=== PATIENT | male | born 1995 | race Caucasian/White ===

== ENCOUNTER 2023-04-11 19:39 | Emergency (ER) | payer OTHER ==
[2023-04-11 19:46] VITALS: TEMP 96.6
[2023-04-11 20:05] LABS: VENOUS BASE EXCESS 2.1 (-2.0-2.0); VENOUS HCO3 29.5 MMOL/L (23.0-27.0); VENOUS O2 SATURATION 54.6 % (60.0-80.0); VENOUS PARTIAL PRESSURE CO2 57.5 mmHg (38.0-50.0); VENOUS PARTIAL PRESSURE O2 28.6 mmHg (30.0-50.0); VENOUS PH 7.328 UNITS (7.330-7.430); VENOUS STANDARD HCO3 25.3 MMOL/L; VENOUS TOTAL CO2 31.3 MMOL/L (24.0-28.0)
[2023-04-11 20:06] LABS: IONIZED CALCIUM 4.6 MG/DL (4.5-5.3)
[2023-04-11] MEDS ORDERED: NS 1,000 ML IV ONE (20:15)
[2023-04-11 20:22] LABS: BASO % 0.7 % (0.0-1.0); EOS # 0.1 10^3/uL (0.0-0.5); EOS % 2.5 % (0.0-3.0); HEMATOCRIT 38.2 % (42.0-52.0); HEMOGLOBIN 13.2 g/dl (13.5-17.5); LYMPH # 1.2 10^3/uL (1.5-5.0); LYMPH % 27.6 % (24.0-44.0); MEAN CORPUSCULAR HEMOGLOBIN 29.5 pg (27.0-33.0); MEAN CORPUSCULAR HGB CONC 34.6 g/dl (32.0-36.5); MEAN CORPUSCULAR VOLUME 85.5 fl (80.0-96.0); MONO # 0.3 10^3/uL (0.0-0.8); MONO % 7.2 % (2.0-8.0); NEUTROPHILS # 2.8 10^3/uL (1.5-8.5); NEUTROPHILS % 61.8 % (36.0-66.0); PLATELET COUNT, AUTOMATED 232 10^3/uL (150-450); RED BLOOD COUNT 4.47 10^6/uL (4.30-6.10); WHITE BLOOD COUNT 4.5 10^3/uL (4.0-10.0)
[2023-04-11] MEDS ORDERED: METH36TA5 PO (20:41)
[2023-04-11] MEDS ORDERED: LEXA1TAB2 PO (20:42)
[2023-04-11 20:46] LABS: ETHYL ALCOHOL (ETHANOL) 0.009 % (0.000-0.010)
[2023-04-11 20:48] LABS: ALBUMIN 3.8 G/DL (3.2-5.2); ALKALINE PHOSPHATASE 58 U/L (46-116); ALT/SGPT 21 U/L (7.0-40); AST/SGOT 23 U/L (<34); BILIRUBIN,DIRECT < 0.1 MG/DL (<0.4); BILIRUBIN,TOTAL 0.4 MG/DL (0.3-1.2); BLOOD UREA NITROGEN 16 MG/DL (9-23); CARBON DIOXIDE LEVEL 27 MMOL/L (20-31); CHLORIDE LEVEL 106 MMOL/L (98-107); CREATININE FOR GFR 0.83 MG/DL (0.70-1.30); GLOMERULAR FILTRATION RATE > 60.0 (>60); GLUCOSE, FASTING 140 MG/DL (60-100); MAGNESIUM LEVEL 1.7 MG/DL (1.8-2.4); POTASSIUM SERUM 3.9 MMOL/L (3.5-5.1); SODIUM LEVEL 142 MMOL/L (136-145); TOTAL PROTEIN 6.3 G/DL (5.7-8.2)
[2023-04-11 20:50] LABS: FREE T4 1.08 NG/DL (0.89-1.76); THYROID STIMULATING HORMONE 3.958 uIU/ML (0.55-4.78)
[2023-04-11] MEDS ORDERED: MAGNESIUM OXIDE 400MG TAB (MAG-OX) PO ONE (21:20)
[2023-04-11 22:24] LABS: APPEARANCE, URINE CLEAR (CLEAR); BACTERIA, URINE AUTO NEGATIVE (NEGATIVE); BILIRUBIN, URINE AUTO NEGATIVE (NEGATIVE); BLOOD, URINE BLOOD NEGATIVE (NEGATIVE); COLOR, URINE YELLOW (YELLOW); GLUCOSE, URINE (UA) AUTO NEGATIVE (NEGATIVE); KETONE, URINE AUTO NEGATIVE (NEGATIVE); LEUKOCYTE ESTERASE, URINE AUTO NEGATIVE (NEGATIVE); MUCUS, URINE SMALL (NEGATIVE); NITRITE, URINE AUTO NEGATIVE (NEGATIVE); PROTEIN, URINE AUTO NEGATIVE (NEGATIVE); RBC, URINE AUTO 0 /HPF (0-3); SPECIFIC GRAVITY URINE AUTO 1.025 (1.002-1.035); SQUAMOUS EPITHELIAL CELL UR AU 0 /HPF (0-6); UROBILINOGEN, URINE AUTO 0.2 mg/dL (0.0-2.0); WBC, URINE AUTO 1 /HPF (0-3)
[2023-04-11 22:32] LABS: AMPHETAMINES LEVEL URINE NEGATIVE (NEGATIVE); BARBITURATES URINE NEGATIVE (NEGATIVE); BENZODIAZEPINES URINE NEGATIVE (NEGATIVE); COCAINE METABOLITE URINE NEGATIVE (NEGATIVE); METHADONE URINE NEGATIVE (NEGATIVE); OPIATES URINE NEGATIVE (NEGATIVE); PHENCYCLIDINE URINE NEGATIVE (NEGATIVE)
[2023-04-11 22:38] LABS: CANNABINOIDS URINE POSITIVE (NEGATIVE)
[2023-04-11 23:05] VITALS: BP 124/74; O2SAT 100
== END 2023-04-11 23:07 | disposition home or self-care (01) ==
LOC: M ED 19:39 → EDBD 19:39 → M ED 23:07
DX: R55 Syncope and collapse (principal); E83.42 Hypomagnesemia; F12.10 Cannabis abuse, uncomplicated; F10.10 Alcohol abuse, uncomplicated; Z79.899 Other long term (current) drug therapy